=== PATIENT | male | born 1995 | race Caucasian/White ===

== ENCOUNTER 2018-09-30 13:55 | Emergency (ER) | payer OTHER ==
[2018-09-30 14:17] VITALS: BP 138/94
--- NOTE | 2018-09-30 14:53 | EDPHY ---
H & P Time Seen by Provider: 09/30/18 14:34 HPI/ROS: Clinical Impression: Left distal clavicle fracture Assessment/Plan: 22-year-old male presents with left rib pain after falling on the shoulder while snowboarding just prior to arrival. No open wound, deformity, or neurovascular compromise. No elbow or wrist pain. X-rays of the shoulder show a nondisplaced distal clavicle fracture. This is treated with a sling. Orthopedic referral given, right treatment discussed, OTC analgesics reviewed, warning signs return to ED outlined and discharge. Differential Dx: Includes but not limited to Clavicle fracture, shoulder dislocation, humerus fracture ED Procedures: Procedure: Splint placement. A left shoulder sling was applied by senior qc technician. After application of the splint I returned and re-examined the patient. The splint was adequately immobilizing the joint and distal to the splint the patient's circulation and sensation was intact. Chief Complaint: Left shoulder pain HPI: 22-year-old male presents to the emergency department with left shoulder and clavicle pain after he fell snowboarding just prior to arrival. Patient states he landed directly on the left shoulder. He did not hit his head or have loss of consciousness. No prior orthopedic injury or surgery to the shoulder. No reports of loss of sensation numbness or tingling to the hand. PMH: None reported Pertinent Past Surgical History: No prior orthopedic surgeon Social History: Noncontributory ROS: All other systems negative Constitutional: No fever, no chills Musculoskeletal: No deformity, + joint pain Skin: No rashes, color change or open wounds. Neurological: No sensory loss or weakness. Physical Exam: General Appearance: Alert, oriented, appropriate for age, cooperative, NAD, well hydrated, non-toxic appearing, VSS, no hypoxia. Neurological: Alert and oriented x 3, normal sensation and strength of extremities Skin: Warm, dry, no rashes, no nodules on palpation. Musculoskeletal: Pain to palpation on the distal aspect of the left clavicle. No open wound or obvious deformity. Limited range of motion of the shoulder due to pain. No shoulder dislocation. Distal neurovascular exam intact. Intact sensation to deltoid. MDM: Patient was seen independently by established practice protocols. Secondary supervising physician at time of evaluation was Dr. Gotti. Diagnosis: Left distal clavicle fracture. New, requires workup Summary: See assessment and plan for summary of ED visit Independent visualization of images, tracing, or specimens yes. Risk of comlications, morbidity, mortality Presenting problem low Diagnostic procedures low Management Options low Patient Progress stable. Smoking Status: Never smoked Constitutional: Initial Vital Signs Temperature (C) 37.1 C 09/30/18 14:15 Heart Rate 85 09/30/18 14:15 Respiratory Rate 16 09/30/18 14:15 Blood Pressure 138/94 H 09/30/18 14:15 O2 Sat (%) 99 09/30/18 14:15 O2 Delivery Mode Room Air Allergies/Adverse Reactions: No Known Allergies Allergy (Unverified 09/30/18 14:15) Home Medications: Medication Instructions Recorded NK [No Known Home Meds] 09/30/18 MDM/Departure - MDM Imaging: I viewed and interpreted images myself - Depart Disposition: Home, Routine, Self-Care Clinical Impression: Fx clavicle shaft-closed Condition: Good Instructions: Clavicle Fracture (ED) Additional Instructions: DISCHARGE INSTRUCTIONS FROM YOUR DOCTOR Thank you for visiting our emergency department today. Please keep in mind that discharge from the emergency department does not mean that there is nothing wrong - it simply means that we have not identified an emergency condition that requires further evaluation or treatment in the hospital. You should always plan to follow up with primary care for re-evaluation of your condition in the next 2-3 days. If you have been referred to a specialist, please call as soon as possible (today or tomorrow) to schedule your follow up appointment at the appropriate time. Preliminary x-rays of your shoulder reveal a closed distal clavicle fracture. We placed your arm in a sling. You need to see an orthopedic provider and a referral was given. Rest and elevate the affected extremity as much as possible. Ice the affected areas 20 min on, 20 min off for the next several days. Please use Tylenol or ibuprofen over the counter in appropriate doses as outlined on your discharge papers. Take ibuprofen with food and a large glass of water. Return to the emergency department for worsening pain, shortness of breath, cough, fever, numbness or loss of sensation to the arm, weakness of the arm, or any other concern People present with illnesses and injuries in different ways, and it is always possible that we have missed something. You may always return for re-evaluation if symptoms worsen or if they are not improving or if you develop new/different symptoms. Again, thank you for choosing our emergency department. We hope that you feel better. Referrals: Marion Batista [Primary Care Provider] - As per Instructions Thompson Asencio MD [Medical Doctor] - As per Instructions
== END 2018-09-30 15:13 | disposition home or self-care (01) ==
DX: S42.002A Fracture of unspecified part of left clavicle, initial encounter for closed fracture (principal); V00.311A Fall from snowboard, initial encounter; Y93.23 Activity, snow (alpine) (downhill) skiing, snowboarding, sledding, tobogganing and snow tubing
CPT/HCPCS: A4565